=== PATIENT | female | born 1995 | race Caucasian/White ===

== ENCOUNTER 2017-05-17 20:52 | Emergency (ER) | payer OTHER ==
[~2017-05-17] VITALS: Ht 157.5 cm; Wt 63.6 kg
[~2017-05-17 20:52] MED LIST: FOLI0.4T4 PO; LEVE500T53 PO; LEVE750T4 PO; PREN-64 PO
[2017-05-17] MEDS ORDERED: LEVE250T55 PO (21:00)
[2017-05-17] MEDS ORDERED: CARB200T6 PO (21:00)
[2017-05-17] MEDS ORDERED: ACETIC ACID 2% 15 ML OTIC SOLUTION AD ONE (21:30)
[2017-05-17] MEDS ORDERED: ACETAMINOPHEN/CODEINE 300-30 MG TABLET PO ONE (21:30)
[2017-05-17] MEDS ORDERED: AMOXICILLIN TRIHYDRATE 250 MG CAPSULE PO ONE (21:45)
[2017-05-17 22:07] VITALS: BP 111/79
== END 2017-05-17 22:14 | disposition home or self-care (01) ==
LOC: EMS 20:53
DX: H60.91 Unspecified otitis externa, right ear (principal); H66.91 Otitis media, unspecified, right ear; Z91.012 Allergy to eggs
CPT/HCPCS: 99284; Z7610

== ENCOUNTER 2017-06-10 21:30 | Emergency (ER) | payer OTHER ==
[~2017-06-10] VITALS: Ht 162.6 cm; Wt 55.9 kg
[~2017-06-10 21:30] MED LIST changes: +CARB200T6 PO; -FOLI0.4T4 PO; +LEVE250T55 PO; -LEVE500T53 PO; -LEVE750T4 PO; -PREN-64 PO
[2017-06-10] MEDS ORDERED: ACETAMINOPHEN 325 MG TABLET PO ONE (22:15)
[2017-06-10] MEDS ORDERED: LevETIRAcetam 500 MG in DEXTROSE 5%-WATER 100 ML IV ONE (22:15)
[2017-06-10 22:22] LABS: BASOPHILS % (AUTO) 0.4 % (0.0-2.0); EOSINOPHILS % (AUTO) 4.6 % (1.0-6.0); HEMATOCRIT 35.4 % (36-46); HEMOGLOBIN 11.3 g/dL (12.0-16.0); MEAN CORPUSCULAR HEMOGLOBIN 25.5 pg (26.0-34.0); MEAN CORPUSCULAR HGB CONC 32.1 G/dL (31.0-37.0); MEAN CORPUSCULAR VOLUME 79 fL (80-100); MONOCYTES # (AUTO) 0.5 K/uL (0.1-1.0); MONOCYTES % (AUTO) 7.4 % (2.0-9.0); NEUTROPHILS # (AUTO) 4.4 K/uL (1.8-7.7); NEUTROPHILS % (AUTO) 60.6 % (40.0-70.0); PLATELET COUNT (AUTO) 249 K/uL (150-450); RED BLOOD CELL COUNT(AUTO) 4.46 MIL/uL (4.00-5.20)
[2017-06-10 22:49] LABS: ANION GAP 7 mmol/L (8-16); CALCIUM, TOTAL 8.9 mg/dL (8.8-10.5); CARBON DIOXIDE 28 mmol/L (22-29); CHLORIDE 103 mmol/L (98-107); CREATININE 0.59 mg/dL (0.60-1.30); GLOMERULAR FILTR. RATE CALC > 60 mL/min (>60); GLUCOSE,RANDOM 94 mg/dL (70-110); POTASSIUM 4.8 mmol/L (3.5-5.1); SODIUM SERUM 138 mmol/L (136-145); UREA NITROGEN, BLOOD 11 mg/dL (7-18)
[2017-06-10 22:53] LABS: ALANINE AMINOTRANSFERASE 15 U/L (12-78); ALBUMIN 3.4 g/dL (3.4-5.0); ALKALINE PHOSPHATASE 96 U/L (46-116); ASPARTATE AMINOTRANSFERASE 16 U/L (15-37); TOTAL PROTEIN, SERUM 7.6 g/dL (6.4-8.2)
[2017-06-10 23:07] LABS: BILIRUBIN,TOTAL 0.1 mg/dL (0.1-1.0)
[2017-06-10 23:25] VITALS: BP 107/82
== END 2017-06-11 00:13 | disposition home or self-care (01) ==
LOC: EMS 21:32
DX: G40.909 Epilepsy, unspecified, not intractable, without status epilepticus (principal); Z91.012 Allergy to eggs; Z79.899 Other long term (current) drug therapy
CPT/HCPCS: 36415; 80053; 85025; 93005; 96365; 99285; G0480; J0712; J7060

== ENCOUNTER 2023-04-17 13:40 | Emergency (ER) | payer MEDICARE, MEDICAID ==
[~2023-04-17] VITALS: Ht 152.4 cm; Wt 72.7 kg
[~2023-04-17 13:40] MED LIST changes: +CARB-92 PO; +CARB100T12 PO; -CARB200T6 PO; +LEVE250T4 PO; -LEVE250T55 PO
[2023-04-17] MEDS ORDERED: LevETIRAcetam 1,000 MG in DEXTROSE 5%-WATER 100 ML IV ONE (15:00)
[2023-04-17 15:06] LABS: BASOPHILS % (AUTO) 0.4 % (0.0-2.0); EOSINOPHILS % (AUTO) 0.8 % (1.0-6.0); HEMATOCRIT 38.8 % (36-46); HEMOGLOBIN 12.9 g/dL (12.0-16.0); LYMPHOCYTES # (AUTO) 0.9 K/uL (1.0-4.8); LYMPHOCYTES % (AUTO) 14.1 % (22.0-44.0); MEAN CORPUSCULAR HEMOGLOBIN 31.2 pg (26.0-34.0); MEAN CORPUSCULAR HGB CONC 33.3 G/dL (31.0-37.0); MEAN CORPUSCULAR VOLUME 94 fL (80-100); MONOCYTES # (AUTO) 0.3 K/uL (0.1-1.0); MONOCYTES % (AUTO) 4.3 % (2.0-9.0); NEUTROPHILS # (AUTO) 4.9 K/uL (1.8-7.7); NEUTROPHILS % (AUTO) 80.4 % (40.0-70.0); PLATELET COUNT (AUTO) 253 K/uL (150-450); RED BLOOD CELL COUNT(AUTO) 4.14 MIL/uL (4.00-5.20); RED CELL DISTRIBUTION WIDTH 12.9 % (11.5-14.5); WHITE BLOOD COUNT (AUTO) 6.1 K/uL (4.5-11.0)
[2023-04-17 15:18] LABS: ANION GAP 8 mmol/L (8-16); CALCIUM, TOTAL 8.9 mg/dL (8.8-10.5); CARBON DIOXIDE 28 mmol/L (22-29); CHLORIDE 99 mmol/L (98-107); CREATININE 0.56 mg/dL (0.60-1.30); GLOMERULAR FILTR. RATE CALC > 60 mL/min (>60); GLUCOSE,RANDOM 86 mg/dL (70-110); SODIUM SERUM 135 mmol/L (136-145); UREA NITROGEN, BLOOD 6 mg/dL (7-18)
[2023-04-17 15:29] LABS: ALANINE AMINOTRANSFERASE 18 U/L (12-78); ALBUMIN 3.8 g/dL (3.4-5.0); ALKALINE PHOSPHATASE 84 U/L (46-116); ASPARTATE AMINOTRANSFERASE 14 U/L (15-37); BILIRUBIN,TOTAL 0.2 mg/dL (0.1-1.0); HCG,QUANTITATIVE < 1 mIU/mL (0-6); TOTAL PROTEIN, SERUM 7.6 g/dL (6.4-8.2)
[2023-04-17 15:30] LABS: ALCOHOL, BLOOD (SERUM) < 3 mg/dL (0-10)
[2023-04-17] MEDS ORDERED: IBUPROFEN 600 MG TABLET PO ONE (16:00)
[2023-04-17 16:53] LABS: PH,URINE DRUG SCREEN 6.5 (5.0-8.0)
[2023-04-17 17:00] LABS: ALCOHOL, URINE DRUG SCREEN NEGATIVE (NEGATIVE); AMPHET/METH SCREEN,URINE NEGATIVE (NEGATIVE); BARBITURATE SCREEN, URINE NEGATIVE (NEGATIVE); BENZODIAZEPINES SCREEN,URINE NEGATIVE (NEGATIVE); CANNABINOID SCREEN,URINE NEGATIVE (NEGATIVE); COCAINE SCREEN,URINE NEGATIVE (NEGATIVE); METHADONE SCREEN, URINE NEGATIVE (NEGATIVE); OPIATE SCREEN,URINE NEGATIVE (NEGATIVE); PHENCYCLIDINE SCREEN,URINE NEGATIVE (NEGATIVE)
[2023-04-17 17:32] VITALS: TEMP 98.1
[2023-04-17 17:39] VITALS: BP 122/79; PULSE 77; RESP 18
== END 2023-04-17 17:41 | disposition home or self-care (01) ==
LOC: EMS 13:57
DX: G40.909 Epilepsy, unspecified, not intractable, without status epilepticus (principal); Z91.012 Allergy to eggs; Z91.013 Allergy to seafood
CPT/HCPCS: 99284; 96365; 80053; 80156; 84702; 85025; 36415; 80307; J0712; J7060; G0480